=== PATIENT | male | born 1935 ===

== ENCOUNTER → 2020-11-08 15:00 | Outpatient (CLI) | payer OTHER | END | disposition home or self-care (01) | LOC: PPH VACUNA 15:00 | DX: Z23 Encounter for immunization (principal) ==

== ENCOUNTER 2020-12-23 09:30 | Inpatient (IN) | payer OTHER ==
[~2020-12-23] VITALS: Ht 167.6 cm; Wt 81.6 kg
[2021-01-09] MEDS ORDERED: UROXATRAL10 MG PO (14:25)
[2021-01-09] MEDS ORDERED: NEXIUM 24HR20 MG PO (14:25)
[2021-01-09] MEDS ORDERED: PROCARDIA XL90 MG PO (14:25)
[2021-01-09] MEDS ORDERED: LIPITOR20 MG PO (14:26)
[2021-01-09] MEDS ORDERED: ROCALTROL0.25 MCG PO (14:26)
[2021-01-13] MEDS ORDERED: MEDROLPACK PO (11:03)
[2021-01-13] MEDS ORDERED: PERCOCET 5-3251 EACH PO (11:03)
[2021-01-13] MEDS ORDERED: COLACE100 MG PO (11:03)
[2021-01-13] MEDS ORDERED: DIAZEPAM5 MG PO (11:03)
[2021-01-13] MEDS ORDERED: BACTRIM DS TAB1 EACH PO (11:03)
[2021-01-13] MEDS ORDERED: NEURONTIN800 MG PO (11:03)
== END 2021-01-15 10:50 | disposition home health service (06) | DRG 458 ==
LOC: PED 01-13 06:36 → O/R 01-13 06:36 → SURH 01-13 12:30 → PED 01-13 15:54 → SURH 01-13 16:45 → PED 01-15 10:50
PROVIDERS: ADMIT Orthopaedic Surgery Orthopaedic Surgery of the Spine; ATTEND Orthopaedic Surgery Orthopaedic Surgery of the Spine
PROC: 07DR0ZZ Extraction of Iliac Bone Marrow, Open Approach (ICD-10-PCS; 2021-01-13)
PROC: 3E0U0GB Introduction of Recombinant Bone Morphogenetic Protein into Joints, Open Approach (ICD-10-PCS; 2021-01-13)
PROC: 4A1104G Monitoring of Peripheral Nervous Electrical Activity, Intraoperative, Open Approach (ICD-10-PCS; 2021-01-13)
PROC: 07DR0ZZ Extraction of Iliac Bone Marrow, Open Approach (ICD-10-PCS; 2021-01-13)
PROC: 0SG10JJ Fusion of 2 or more Lumbar Vertebral Joints with Synthetic Substitute, Posterior Approach, Anterior Column, Open Approach (ICD-10-PCS; principal; 2021-01-13 16:45)
DX: M41.26 Other idiopathic scoliosis, lumbar region (principal); M48.062 Spinal stenosis, lumbar region with neurogenic claudication